=== PATIENT | female | born 1985 | race Caucasian/White ===

== ENCOUNTER 2016-09-18 05:09 | Emergency (ER) | payer BC ==
[2016-09-18] MEDS ORDERED: Ketorolac 60 MG/2 ML SDV IM ONE (05:29)
--- NOTE | 2016-09-18 05:33 | EDM.PDOC ---
ED HPI GENERAL MEDICAL PROBLEM - General Chief Complaint: Upper Extremity Injury/Pain Stated Complaint: POSSIBLE BROKEN LEFT ARM Time Seen by Provider: 09/18/16 05:19 - History of Present Illness INITIAL COMMENTS - FREE TEXT/NARRATIVE: HISTORY AND PHYSICAL: History of present illness: The patient is a healthy 30-year-old female who presents after falling impacting her left upper extremity and coming here to the ED with a friend complaining of left humerus pain. The patient admits that she was drinking alcohol tonight she had this fall but her friend witnessed the events and states that she did not pass out or blackout. The patient denies any head neck or back pain and has no chest wall pain abdominal pain hip or lower extremity pain. The patient says that from the elbow to the hand she is having referred pain but the bones do not hurt and she has no neurosensory changes in the distal left upper extremity. She has no proximal shoulder or clavicle pain but does complain of pain in the anterior humeral area. The patient did not take anything for pain prior to coming here. The patient is right-hand dominant. Earlier today she was having no systemic complaints. Patient takes oral control and denies . Review of systems: As per history of present illness and below otherwise all systems reviewed and negative. Past medical history: As per history of present illness and as reviewed below otherwise noncontributory. Surgical history: As per history of present illness and as reviewed below otherwise noncontributory. Social history: No reported history of drug or alcohol abuse. Family history: As per history of present illness and as reviewed below otherwise noncontributory. Physical exam: Gen.: Well-developed thin female who is nontoxic and vital signs are noted by me. She was ambulatory in the ED and has a sling on during my evaluation. HEENT: Atraumatic, normocephalic, pupils reactive, sclera are injected, negative for conjunctival pallor or scleral icterus, mucous membranes moist, throat clear, neck supple, nontender, trachea midline. There is no facial swelling or palpable bony deformities and the teeth are intact as is the bite. There are no midline step-offs tenderness defects of the cervical spine. Lungs: Clear to auscultation, breath sounds equal bilaterally, chest nontender. Heart: S1S2, regular rate and rhythm no overt murmurs Abdomen: Soft, nondistended, nontender. NABS. Pelvis: Stable nontender. No lateral hip tenderness Genitourinary: Deferred. Rectal: Deferred. Extremities: Atraumatic with full range of motion of all extremities with the exception of the left humeral area with her soft tissue swelling and a palpable bony deformity appreciated without ecchymosis. The compartments are soft and there is good pulses distally and good cap refill distally. There is no tenderness or defects of the left clavicle elbow forearm wrist or hand. The legs are, negative for cords or calf pain. Neurovascular unremarkable. Neuro: Awake, alert, oriented. Motor and sensory unremarkable throughout. Exam nonfocal. Diagnostics: X-ray left humerus Therapeutics: Sling ice Toradol 0600: Case was discussed with our orthopedic surgeon Dr. Delong; he will come in to see the patient and review x-rays and discuss with her the plan options treatment. Patient and friends at bedside are aware of this. 0625: Dr Delong is here in the ER and has evaluated the patient and reviewed the x- rays. He has discussed with her the care plan of getting [facility] to place a humerous fracture brace . In the interim he has placed an Luis swath around the sling arm and has discussed with the patient at length the care plan. The patient will be given a prescription for W[place] for pain and will be followed up in the ortho clinic next week. Nursing will organize [facility] getting the brace placed. Impression: Mid shaft humeral fracture Definitive disposition and diagnosis as appropriate pending reevaluation and review of above. Left Arm Pain Score (Numeric/FACES): 6 - Related Data Allergies Allergy/AdvReac Type Severity Reaction Status Date / Time No Known Allergies Allergy Verified 09/18/16 05:26 Home Meds: Home Meds Multivitamin [Daily Multiple Vitamin] 1 tab PO DAILY 02/28/16 [History] Norgestimate-Ethinyl Estradiol [Nzu-Kw-Bfycxj Tablet] 1 tab PO DAILY 02/28/16 [ History] buPROPion [Wellbutrin XL] 1 tab PO DAILY 02/28/16 [History] Past Medical History Other HEENT History: wears glasses/contacts Cardiovascular History: Reports: None Respiratory History: Reports: None Gastrointestinal History: Reports: None Genitourinary History: Reports: None LAST MARKER History: Reports: None Musculoskeletal History: Reports: None Neurological History: Reports: None Other Psychiatric History: denies Endocrine/Metabolic History: Reports: None Hematologic History: Reports: None Immunologic History: Reports: None Oncologic (Cancer) History: Reports: None Dermatologic History: Reports: None - Past Surgical History Female Surgical History: Reports: Breast Biopsy Social & Family History - Tobacco Use Smoking Status *Q: Current Every Day Smoker Years of Tobacco use: 15 Packs/Tins Daily: 1 - Recreational Drug Use Recreational Drug Use: Yes Drug Use in Last 12 Months: Yes Recreational Drug Type: Reports: Marijuana/Hashish Recreational Drug Use Frequency: Daily Review of Systems - Review of Systems Review Of Systems: ROS reveals no pertinent complaints other than HPI. ED EXAM, GENERAL - Physical Exam Exam: See Below (See dictation) Course - Vital Signs Last Recorded V/S: Last Vital Signs Temp 36.1 C 09/18/16 05:27 Pulse 68 09/18/16 05:27 Resp 18 09/18/16 05:27 BP 110/60 09/18/16 05:27 Pulse Ox 98 09/18/16 05:27 - Orders/Labs/Meds Orders: Active Orders 24 hr Category Date Time Status Humerus Lt [CR] Stat Exams 09/18/16 05:29 Taken Meds: Medications Discontinued Medications Generic Name Dose Route Start Last Admin Trade Name Freq PRN Reason Stop Dose Admin Ketorolac Tromethamine 60 mg 09/18/16 05:29 09/18/16 05:33 Toradol IM 09/18/16 05:30 60 mg ONETIME ONE Administration Departure - Departure Time of Disposition: 06:41 Disposition: Home, Self-Care 01 Condition: Good Clinical Impression: Fall Qualifiers: Encounter type: initial encounter Qualified Code(s): W19.XXXA - Unspecified fall, initial encounter Fracture closed, humerus, shaft Qualifiers: Encounter type: initial encounter Fracture morphology: comminuted Fracture alignment: nondisplaced Laterality: left Qualified Code(s): S42.355A - Nondisplaced comminuted fracture of shaft of humerus, left arm, initial encounter for closed fracture - Discharge Information Referrals: PCP,None [Primary Care Provider] - Forms: ED Department Discharge Additional Instructions: The following information is given to patients seen in the emergency department who are being discharged to home. This information is to outline your options for follow-up care. We provide all patients seen in our emergency department with a follow-up referral. The need for follow-up, as well as the timing and circumstances, are variable depending upon the specifics of your emergency department visit. If you don't have a primary care physician on staff, we will provide you with a referral. We always advise you to contact your personal physician following an emergency department visit to inform them of the circumstance of the visit and for follow-up with them and/or the need for any referrals to a consulting specialist. The emergency department will also refer you to a specialist when appropriate. This referral assures that you have the opportunity for followup care with a specialist. All of these measure are taken in an effort to provide you with optimal care, which includes your followup. Under all circumstances we always encourage you to contact your private physician who remains a resource for coordinating your care. When calling for followup care, please make the office aware that this follow-up is from your recent emergency room visit. If for any reason you are refused follow-up, please contact the [facility] emergency department at and ask to speak to the emergency department charge nurse. [facility]--Orthopedic clinic Professional [address] [address] Please call and schedule a follow-up appointment next week in the orthopedics clinic; the clinic should have your name and information and know that you were seen in the ER. Please take [id number] Tylenol/ibuprofen as well as the prescribed [place] for pain. Use the brace as shown and ice to the area. Return to ER as needed and as discussed - My Orders Last 24 Hours: My Active Orders 09/18/16 05:29 Humerus Lt [CR] Stat - Assessment/Plan Last 24 Hours: My Active Orders 09/18/16 05:29 Humerus Lt [CR] Stat
[2016-09-18] MEDS ORDERED: Acetaminophen 325 MG Tab PO ONE (09:11)
[2016-09-18 09:33] VITALS: BP 107/62
--- NOTE | 2016-09-18 09:47 | CR ---
EXAM DATE: 09/18/16 PATIENT'S AGE: 30 Patient: ALEC MEADE Facility: [place], [place] Site . Site : 1985 Study: XRay Extremity Left [id number]/27/2017 5:56:20 AM Ordering Physician: Mirian Gusman Final Report: Indication: Trauma. Patient fell. Technique: Two view left humerus. Findings: There is a comminuted three part spiral fracture involving the proximal shaft of the left humerus. There is anterior and medial angulation of the fracture site. The elbow appears intact. There is rotation of the humeral head but the head appears anatomically aligned with respect to the glenoid. Impression: Comminuted angulated three part spiral fracture identified within the proximal left humeral diaphysis. Dictated by Floyd Mello MD @ Sep 18 2016 6:09AM (Electronic Signature) Report Signed by Proxy. MAYANK
--- NOTE | 2016-09-18 10:11 | HP ---
DATE OF : 1985 PRIMARY CARE PHYSICIAN: None PCP HISTORY OF PRESENT ILLNESS: The patient is a 30-year-old [id number] female, who was drinking this evening; when she was dancing, slipped and fell onto her left elbow. She had immediate pain and deformity in the left arm. She did not hit her head or had any other type of injury. She denies neurosensory changes in the left arm. There are no prior history of fractures. PAST MEDICAL HISTORY: None. PAST SURGICAL HISTORY: Breast biopsy. ALLERGIES: None. SOCIAL HISTORY: She smokes one pack of cigarettes per day. She uses marijuana daily. MEDICATIONS: Multivitamin, Llj-Cz-Tjyjoe control, and bupropion. REVIEW OF SYSTEMS: Otherwise negative. PHYSICAL EXAMINATION: GENERAL: In no apparent distress, intoxicated. HEENT: Mucous membranes moist. Anicteric. LUNGS: Equal symmetric expansion. CARDIOVASCULAR: Regular rate and rhythm. 2+ radial and ulnar pulse left upper extremity. ABDOMEN: Soft EXTREMITIES: Left arm reveals deformity in the mid aspect. Skin is intact with no lesions. She has normal sensation in radial, median, and ulnar nerves with active motor strength in AIN/PIN/ulnar nerves. She is nontender at the elbow or at the shoulder joint. DIAGNOSTIC DATA: X-rays of the left humerus to include shoulder and elbow, demonstrate a comminuted mid to proximal 3rd humeral shaft fracture with two butterfly fragments with one of the comminuted butterfly fragments coming up to just below the humeral head. The comminuted pieces coming down to at least the mid aspect of the humerus. There was only slight apex anterior angulation and apex medial angulation. ASSESSMENT: Comminuted left mid to proximal 3rd humerus fracture, closed. PLAN: I discussed diagnosis and treatment options with the patient. Very often this will do very well with nonoperative treatment if the fracture piece is aligned in a Vizcaino type humerus fracture brace. Recommend initially starting with this. If the fracture fragments do not align, we may be forced into operative fixation; however, this would need to be decided in several weeks. Her arm was swaddled in a sling with an Luis bandage. She will be sent to [facility] for a fracture brace today. We will see her back in clinic next week. Informed her she needs to sleep in a chair and to allow gravity and the fracture brace to align the fractures. I told her she needs to have complete smoking cessation and the smoking will hinder healing of the fracture. Also, she may not be a surgical candidate with continued smoking because of the risk of nonunion. These instructions will need to be gone over with her again when she returns to clinic. AUGUSTA AYALA /[id number]
== END 2016-09-18 09:27 | disposition home or self-care (01) ==
LOC: MW.ED 05:09
DX: S42.355A Nondisplaced comminuted fracture of shaft of humerus, left arm, initial encounter for closed fracture (principal); F17.210 Nicotine dependence, cigarettes, uncomplicated; Z79.899 Other long term (current) drug therapy; W19.XXXA Unspecified fall, initial encounter
CPT/HCPCS: 73060; 96372; 99283; A9270; J1885